=== PATIENT | female | born 1950 | race Caucasian/White ===

== ENCOUNTER → 2016-05-17 | Outpatient (CLI) | payer BC ==
[~2016-05-17] MED LIST: CLINDAMYCIN HC300 MG PO; COLACE 100MG C100 MG PO; DULOXETINE HCL60 MG PO; FOSAMAX 10 MG T10 MG PO; GLUCOTROL 10 MG10 MG PO; IBUPROFEN800 MG PO; LANTUS100 UNIT/1 SQ; LISINOPRIL5 MG PO; NORCO 7.5-3251 EACH PO; PERCOCET 10-321 EACH PO; PHENERGAN 25 MG25 M1 PO; PLAVIX 75 MG TA75 MG PO; SENOKOT-S TABL1 EACH PO; SIMVASTATIN20 MG PO; TIROSINT25 MCG PO; TRADJENTA5 MG PO; TYLENOL 325MG325 MG PO; VITAMIN C 500500 MG PO; VITAMIN D50000 UNIT PO; ZANTAC150 MG PO
== END ==
LOC: KOH-I 09:44
DX: M84.375A Stress fracture, left foot, initial encounter for fracture (principal); M20.42 Other hammer toe(s) (acquired), left foot; Z98.1 Arthrodesis status
CPT/HCPCS: 73700